=== PATIENT | male | born 1995 | race Caucasian/White ===

== ENCOUNTER 2024-08-30 11:11 | Emergency (ER) | payer BC ==
[2024-08-30] MEDS ORDERED: Sodium Chloride 0.9% 1,000 ML IV ONE (11:32)
[2024-08-30 11:38] LABS: BASOPHILS ABSOLUTE AUTO 0.04 K/uL (0.00-0.20); BASOPHILS PERCENT AUTO 0.3 % (0.0-1.0); EOSINOPHILS ABSOLUTE AUTO 0.19 K/uL (0.00-0.45); EOSINOPHILS PERCENT AUTO 1.6 % (0.0-6.0); HEMATOCRIT 31.9 % (42.0-52.0); HEMOGLOBIN 10.5 g/dL (14.0-18.0); IMMATURE GRAN ABSOLUTE AUTO 0.03 K/uL (0.00-0.05); IMMATURE GRAN PERCENT AUTO 0.3 % (0.0-0.4); LYMPHOCYTES ABSOLUTE AUTO 1.91 K/uL (1.00-4.80); LYMPHOCYTES PERCENT AUTO 16.1 % (24.0-44.0); MEAN CORPUSCULAR HEMOGLOBIN 28.5 pg (28.0-32.0); MEAN CORPUSCULAR HGB CONC 32.9 g/dL (32.0-36.0); MEAN CORPUSCULAR VOLUME 86.4 fL (83.0-99.0); MONOCYTES ABSOLUTE AUTO 0.68 K/uL (0.00-0.80); MONOCYTES PERCENT AUTO 5.7 % (0.0-8.0); NEUTROPHILS ABSOLUTE AUTO 9.04 K/uL (1.80-7.70); PLATELET COUNT,PLT 244 K/uL (150-400); RED BLOOD CELL COUNT 3.69 M/uL (4.52-5.90); WHITE BLOOD CELL COUNT,WBC 11.89 K/uL (3.9-11.3)
[2024-08-30] MEDS: Metoprolol Tartrate 5 MG/5 ML SDV IVPUSH ONE (11:55)
[2024-08-30 12:11] LABS: ALANINE AMINOTRANSFERASE,ALT 10 IU/L (14-63); ALBUMIN 3.9 g/dL (3.4-5.0); ALKALINE PHOSPHATASE 56 U/L (46-116); ASPARTATE AMNIOTRANSFERASE,AST 9 IU/L (15-37); BILIRUBIN TOTAL 0.2 mg/dL (0.2-1.0); BLOOD UREA NITROGEN,BUN 75 mg/dL (7.0-18.0); CALCIUM 8.6 mg/dL (8.5-10.1); CARBON DIOXIDE,CO2 25.4 mmol/L (21.0-32.0); CHLORIDE,CL 101 mmol/L (98-107); CREATININE 9.1 mg/dL (0.8-1.3); EST CRCL DRUG DOSING (CG) 13.05 mL/min; GLUCOSE RANDOM 151 mg/dL (74-106); LIPASE 45 U/L (16-77); MAGNESIUM 2.1 mg/dL (1.8-2.4); POTASSIUM,K 3.8 mmol/L (3.5-5.1); PRO B-TYPE NATRIUR PEPT,BNPPRO 384 pg/mL (0-125); PROTEIN TOTAL,TP 7.9 g/dL (6.4-8.2); SODIUM,NA 142 mmol/L (136-148)
[2024-08-30 12:23] LABS: ESTIMATED GFR 7 mL/min (>60)
== END 2024-08-30 13:03 | disposition home or self-care (01) ==
LOC: MW.ED 11:11
DX: I47.10 Supraventricular tachycardia, unspecified (principal); R79.89 Other specified abnormal findings of blood chemistry; N18.6 End stage renal disease; Z99.2 Dependence on renal dialysis; F17.210 Nicotine dependence, cigarettes, uncomplicated; Z79.899 Other long term (current) drug therapy
CPT/HCPCS: 36415; 71045; 80053; 83690; 83735; 83880; 84484; 85025; 93005; 96374; 99285; J3490; 93010; 99284